=== PATIENT | female | born 1995 | race Two or more races ===

== ENCOUNTER 2016-04-22 08:57 | Day surgery (SDC) | payer OTHER ==
[~2016-04-22 08:57] MED LIST: DEXAMETHASONE SOD PHOS INJ 10 MG/1 ML VIAL ONE; FENTANYL CITRATE INJ/PF 100 MCG/2 ML AMPUL ONE; LIDOCAINE 2% INJ-PF (20 MG/ML) 10 ML AMPUL ONE; MIDAZOLAM 2 MG/2 ML INJ ONE; ONDANSETRON HCL INJ/PF 4 MG/2 ML SDV ONE; OXYMETAZOLINE HCL 0.05% NASAL SPRAY 15 ML BOTTLE ONE; PROPOFOL INJ 200 MG/20 ML VIAL IV ONE; SUCCINYLCHOLINE CHLORIDE INJ 200 MG/10 ML VIAL ONE
[2016-04-22] MEDS ORDERED: BUPIVACAINE HCL 0.5%-EPI 1:200000 INJ/PF 30 ML VIAL ONE (10:20)
[2016-04-22] MEDS ORDERED: ONDANSETRON HCL INJ/PF 4 MG/2 ML SDV ONE (10:44)
[2016-04-22] MEDS ORDERED: DEXAMETHASONE SOD PHOS INJ 10 MG/1 ML VIAL ONE (10:44)
[2016-04-22] MEDS ORDERED: FENTANYL CITRATE INJ/PF 100 MCG/2 ML AMPUL ONE (11:55)
--- NOTE | 2016-04-30 09:37 | SURGICARE OPERATIVE REPORT E ---
[facility] Operative Report NAME: MICHELE SIFUENTES AGE: 21Y DATE OF SURGERY: ROOM: PREOPERATIVE DIAGNOSES: 1. Chronic recurrent tonsillitis. 2. Adenotonsillar hypertrophy. POSTOPERATIVE DIAGNOSES: 1. Chronic recurrent tonsillitis. 2. Adenotonsillar hypertrophy. OPERATION PERFORMED: 1. Tonsillectomy bilateral. 2. Adenoidectomy. SURGEON: GELA GUTIÉRREZ D.O. ANESTHETIC: General endotracheal tube. ANESTHESIA STAFF: Ashley ALVAREZ. ESTIMATED BLOOD LOSS: 10 mL. FLUIDS: COMPLICATIONS: None. DRAINS: None. SPONGE COUNT: Verified. MATERIALS FORWARDED SPECIMEN: Left and right tonsillar tissue. FINDINGS: 1. The tonsils were noted to be 3+ in size bilateral, were cryptic in nature, and were with tonsillar debris present bilateral. 2. Adenoid hypertrophy was 2-3+ with posterior choana extension on each side and valentina compression was noted. 3. Soft palatal tissues were redundant in nature and the uvula was unremarkable in appearance. INDICATIONS: This is a 21-year-old female who is seen and evaluated at the Otolaryngology Clinic at [facility]. The patient had been referred for and she complained of a history of recurrent tonsillitis episodes requiring antibiotic treatment occurring each year, over the years. With these episodes the patient experiences significant sore throat, discomfort and poor p.o. intake. The patient has also complained of a history of chronic tonsillitis over the years with symptoms consistent with keratosis pharyngeus. Clinically, the patient was also noted to have adenotonsillar hypertrophy. After extension discussion with the patient, recommendation and plan was for tonsillectomy and adenoid surgery. The procedures and all of their risks and complications were all discussed in detail with the patient. She voiced an understanding of the described surgical plan, agreed to proceed, and consent was obtained. PROCEDURE: At this point the adenoid microdebrider system at a setting of 1500 RPM was used to debulk the adenoid tissue without difficulty. Use of adenoid packs and suction electrocautery were used to provide adequate hemostasis. Normal saline irrigation was performed and suctioned, and there was adequate hemostasis again noted. DICTATING PHYSICIAN: GELA GUTIÉRREZ D.O. [id number] PHY#: [id number] ID: [id number] JOB#: [id number] ACCT: [id number] cc:GELA GUTIÉRREZ D.O. >
== END 2016-04-22 13:05 | disposition home or self-care (01) ==
LOC: SC 08:57
PROVIDERS: ATTEND Otolaryngology
PROC: 0C5QXZZ Destruction of Adenoids, External Approach (ICD-10-PCS; 2016-04-22)
PROC: 0CTPXZZ Resection of Tonsils, External Approach (ICD-10-PCS; principal; 2016-04-22 10:00)
DX: J35.3 Hypertrophy of tonsils with hypertrophy of adenoids (principal); R06.83 Snoring
CPT/HCPCS: 42821; 88304 ×2; J2250; J3490 ×2; J3010; J0330; J2405; J2704; J1100; 170